=== PATIENT | female | born 1960 | race Caucasian/White ===

== ENCOUNTER → 2016-08-31 | Outpatient (REF) | payer MEDICAID ==
[2016-08-31 19:24] LABS: PERCENT SATURATION 36.9 % (13.2-37.4)
== END ==
LOC: M LAB REF 11:46
PROVIDERS: ATTEND Nurse Practitioner Adult Health
DX: Z01.89 Encounter for other specified special examinations (principal); R94.5 Abnormal results of liver function studies

== ENCOUNTER → 2016-09-28 | Outpatient (REF) | payer MEDICAID ==
[2016-09-28 18:34] LABS: ALBUMIN 4.2 GM/DL (3.2-5.2); ALBUMIN/GLOBULIN RATIO 1.24 (1.00-1.93); ALKALINE PHOSPHATASE 94 U/L (45-117); ALT/SGPT 23 U/L (12-78); ANION GAP 12 MEQ/L (8-16); AST/SGOT 21 U/L (15-37); BILIRUBIN,TOTAL 0.5 MG/DL (0.2-1.0); BLOOD UREA NITROGEN 6 MG/DL (7-18); CALCIUM LEVEL 9.7 MG/DL (8.5-10.1); CARBON DIOXIDE LEVEL 22 MEQ/L (21-32); CHLORIDE LEVEL 95 MEQ/L (98-107); CREATININE FOR GFR 0.58 MG/DL (0.55-1.02); GLOMERULAR FILTRATION RATE > 60.0 (>51); GLUCOSE, FASTING 92 MG/DL (70-105); POTASSIUM SERUM 4.5 MEQ/L (3.5-5.1); SODIUM LEVEL 129 MEQ/L (136-145); TOTAL PROTEIN 7.6 GM/DL (6.4-8.2)
== END ==
LOC: M LAB REF 16:30
PROVIDERS: ATTEND Nurse Practitioner Adult Health
DX: E55.9 Vitamin D deficiency, unspecified (principal); I10 Essential (primary) hypertension; R94.5 Abnormal results of liver function studies

== ENCOUNTER → 2018-10-30 | Outpatient (REF) | payer MEDICAID ==
[2018-10-30 12:16] LABS: BASO # 0.1 10^3/uL (0.0-0.2); BASO % 0.9 % (0.0-1.0); EOS # 0.1 10^3/uL (0.0-0.50); EOS % 1.3 % (0.0-3.0); HEMATOCRIT 44.8 % (36.0-47.0); HEMOGLOBIN 15.6 g/dl (12.0-15.5); LYMPH # 2.4 10^3/uL (1.5-4.5); LYMPH % 27.2 % (24.0-44.0); MEAN CORPUSCULAR HGB CONC 34.8 g/dl (32.0-36.5); MEAN CORPUSCULAR VOLUME 103.5 fl (80.0-96.0); MONO # 0.7 10^3/uL (0.0-0.8); MONO % 7.5 % (0.0-5.0); NEUTROPHILS # 5.5 10^3/uL (1.8-7.7); NEUTROPHILS % 62.8 % (36.0-66.0); PLATELET COUNT, AUTOMATED 237 10^3/uL (150-450); RED BLOOD COUNT 4.33 10^6/uL (4.00-5.40); WHITE BLOOD COUNT 8.7 10^3/uL (4.0-10.0)
[2018-10-30 12:22] LABS: ALBUMIN 4.1 GM/DL (3.2-5.2); ALT/SGPT 17 U/L (12-78); BILIRUBIN,TOTAL 0.5 MG/DL (0.2-1.0); BLOOD UREA NITROGEN 5 MG/DL (7-18); CALCIUM LEVEL 8.9 MG/DL (8.5-10.1); CARBON DIOXIDE LEVEL 25 MEQ/L (21-32); CHLORIDE LEVEL 101 MEQ/L (98-107); CHOLESTEROL LEVEL 242 MG/DL (<200); CHOLESTEROL RISK RATIO 4.033 (<5); CREATININE FOR GFR 0.67 MG/DL (0.55-1.30); GLOMERULAR FILTRATION RATE > 60.0 (>51); GLUCOSE, FASTING 95 MG/DL (70-100); HDL CHOLESTEROL 60 MG/DL (>40); LDL CHOLESTEROL 162 MG/DL (<100); NON-HDL-C 182 MG/DL; SODIUM LEVEL 135 MEQ/L (136-145); TOTAL PROTEIN 7.3 GM/DL (6.4-8.2); TRIGLYCERIDES LEVEL 100 MG/DL (<150)
== END ==
LOC: M LAB REF 11:56
PROVIDERS: ATTEND Nurse Practitioner Adult Health
DX: J44.9 Chronic obstructive pulmonary disease, unspecified (principal); I10 Essential (primary) hypertension; R63.4 Abnormal weight loss; D75.89 Other specified diseases of blood and blood-forming organs; R94.5 Abnormal results of liver function studies

== ENCOUNTER 2020-06-17 15:47 | Emergency (ER) | payer MEDICAID ==
[~2020-06-17] VITALS: Ht 157.5 cm; Wt 42.7 kg
[2020-06-17] MEDS ORDERED: LISI40TA PO (16:23)
[2020-06-17] MEDS ORDERED: SPIR1CAP PO (16:23)
[2020-06-17] MEDS ORDERED: BISO10TA14 PO (16:23)
[2020-06-17] MEDS ORDERED: COMBAER6 PO (16:23)
[2020-06-17] MEDS ORDERED: ALBU8.5H PO (16:23)
[2020-06-17] MEDS ORDERED: DOK1CAP7 PO (16:23)
[2020-06-17] MEDS ORDERED: VITA50005 PO (16:23)
[2020-06-17 17:24] LABS: INR 0.81; PROTHROMBIN TIME 11.4 SECONDS (12.5-14.3)
[2020-06-17 17:25] LABS: PARTIAL THROMBOPLASTIN TIME 36.7 SECONDS (24.2-38.5)
[2020-06-17 17:33] LABS: BASO # 0.1 10^3/uL (0.0-0.2); BASO % 0.3 % (0.0-1.0); EOS % 0.2 % (0.0-3.0); HEMATOCRIT 35.9 % (36.0-47.0); HEMOGLOBIN 13.6 g/dl (12.0-15.5); LYMPH # 1.5 10^3/uL (1.5-5.0); LYMPH % 8.1 % (24.0-44.0); MEAN CORPUSCULAR HEMOGLOBIN 33.5 pg (27.0-33.0); MEAN CORPUSCULAR VOLUME 88.4 fl (80.0-96.0); MONO # 0.8 10^3/uL (0.0-0.8); MONO % 4.1 % (0.0-5.0); NEUTROPHILS # 15.6 10^3/uL (1.5-8.5); NEUTROPHILS % 85.5 % (36.0-66.0); PLATELET COUNT, AUTOMATED 272 10^3/uL (150-450); RED BLOOD COUNT 4.06 10^6/uL (4.00-5.40); WHITE BLOOD COUNT 18.2 10^3/uL (4.0-10.0)
[2020-06-17 17:34] LABS: MEAN CORPUSCULAR HGB CONC 37.9 g/dl (32.0-36.5)
--- NOTE | 2020-06-17 17:41 | REP ---
INDICATION: chronic wound r/o osteo, sq emphysema COMPARISON: None. TECHNIQUE: There are four views: FINDINGS: There is diffuse circumferential forefoot soft tissue swelling. No air or gas bubbles are identified within the swollen soft tissues. There are no lytic, blastic or destructive skeletal changes to suggest osteomyelitis. Mineralization and joint spaces are otherwise unremarkable. IMPRESSION: No plain film evidence of osteomyelitis. Diffuse forefoot soft tissue swelling. <Electronically signed by Anand Braswell > 06/17/20 [id number]
[2020-06-17 17:51] LABS: ERYTHROCYTE SEDIMENTATION RATE 17 mm/hr (0-30)
[2020-06-17 18:26] LABS: BLOOD UREA NITROGEN 8 MG/DL (7-18); C REACTIVE PROTEIN QUANTITATIV 3.64 MG/DL (0.00-0.30); CALCIUM LEVEL 8.5 MG/DL (8.8-10.2); CARBON DIOXIDE LEVEL 20 MEQ/L (21-32); CHLORIDE LEVEL 81 MEQ/L (98-107); CREATININE FOR GFR 0.84 MG/DL (0.55-1.30); GLOMERULAR FILTRATION RATE > 60.0 (>45); GLUCOSE, FASTING 94 MG/DL (70-100); POTASSIUM SERUM 5.4 MEQ/L (3.5-5.1); SODIUM LEVEL 109 MEQ/L (136-145)
[2020-06-17] MEDS ORDERED: VANCOMYCIN HCL 750 MG, VIAL MATE ADAPTER 1 EACH in D5W 250 ML IV ONE (18:30)
[2020-06-17 19:01] LABS: FREE T4 1.17 NG/DL (0.76-1.46)
[2020-06-17 19:09] LABS: OSMOLALITY SERUM 224 MOSM/KG (275-295)
[2020-06-17] MEDS ORDERED: ISOVUE-370 76% 100ML VIAL As Ordered ONE (19:12)
--- NOTE | 2020-06-17 20:17 | REP ---
INDICATION: hyponatremia, copd r/o pulmonary mass. COMPARISON: 11/30/2005. TECHNIQUE: Upright PA and lateral chest. FINDINGS: The lung mercedes are clear. Cardiac size is normal. The asher, mediastinum and skeletal structures are unremarkable. IMPRESSION: Essentially negative PA and lateral chest <Electronically signed by Anand Braswell > 06/17/202013
[2020-06-17] MEDS ORDERED: NS 1,000 ML IV SCH (20:30)
[2020-06-17 20:52] LABS: ALT/SGPT 24 U/L (12-78); BILIRUBIN,DIRECT 0.2 MG/DL (0.0-0.2); BILIRUBIN,TOTAL 0.7 MG/DL (0.2-1.0); NT-PRO BNP 424 PG/ML (<125); TOTAL PROTEIN 6.4 GM/DL (6.4-8.2)
[2020-06-17] MEDS ORDERED: NS 500 ML IV ONE (21:30)
[2020-06-17 22:06] LABS: CREATININE,RANDOM URINE 22.2 MG/DL
[2020-06-17 23:14] LABS: BLOOD UREA NITROGEN 8 MG/DL (7-18); CALCIUM LEVEL 8.4 MG/DL (8.8-10.2); CARBON DIOXIDE LEVEL 22 MEQ/L (21-32); CHLORIDE LEVEL 84 MEQ/L (98-107); CREATININE FOR GFR 0.86 MG/DL (0.55-1.30); GLOMERULAR FILTRATION RATE > 60.0 (>45); GLUCOSE, FASTING 101 MG/DL (70-100); POTASSIUM SERUM 4.5 MEQ/L (3.5-5.1); SODIUM LEVEL 113 MEQ/L (136-145)
[2020-06-18 00:44] VITALS: BP 120/77
--- NOTE | 2020-06-18 07:56 | ECGEPIP ---
[facility] - ED Test Date: 2020-06-17 Pat Name: JUAN HIGGINBOTHAM Department: Room: - Gender: Female Button Tufter: madeline : 1960 Requested By: MARCIA JETT PA-C. Order Number: [id number] Reading MD: Walter Serrato Measurements Intervals [place] Rate: 89 P: 76 NH: 175 QRS: 53 QRSD: 85 T: 71 QT: 370 QTc: 451 Interpretive Statements SINUS RHYTHM LOW QRS VOLTAGE IN PRECORDIAL LEADS ANTEROSEPTAL MYOCARDIAL INFARCTION, OF INDETERMINATE AGE ABNORMAL T, CONSIDER ISCHEMIA, ANTERIOR LEADS NO PRIORS FOR COMPARISON Electronically Signed on 06-18-2020 7:55:53 EST by Walter Serrato
--- NOTE | 2020-06-18 08:51 | REP ---
INDICATION: right foot ischemia. Repeat dictation: Preliminary report is provided at the time of the exam by richie STALLWORTH. COMPARISON: None. TECHNIQUE: 100 mL of intravenous Isovue 370 is administered. Helical scanning is acquired. 3 mm axial images re-formatted. Coronal and sagittal MPR, curved MPR, and MIP images are generated. Surface rendered 3D images are generated and viewed in a rotational format. FINDINGS: The renal artery origins are not included in the scan plane. The lower pole the right kidney suggests right renal atrophy. There appear to be 2 left renal arteries. Similarly, the celiac axis and the origin of the SMA are above the top of the imaging field of view. The SMA is patent. SLICK origin is calcific but patent. The infrarenal abdominal aorta is normal in caliber with calcific plaquing no high-grade stenosis. There is bilateral common iliac artery disease with 50% stenosis of the origin of the left common iliac artery. There is multifocal right external iliac artery stenosis with the distal external iliac artery approximately 75% stenotic. There is multifocal disease involving the left external iliac artery with 80-90% stenosis. The internal iliac arteries appear to be occluded bilaterally. Distal external iliac arteries are small. Common femoral arteries show heavy calcification and plaquing with stenosis. Profundal femoral arteries are patent bilaterally. On the right there is multifocal calcific plaquing in the superficial femoral artery with multiple stenoses. A short segment occlusion is seen in the right distal SFA to popliteal artery. The right distal popliteal artery is reconstituted. There is intact peroneal artery on the right. Multifocal calcification and occlusion seen in the anterior and posterior tibial arteries on the right. There is diffuse soft tissue swelling. The 8 posterior tibial artery is reconstituted and is seen a patent across the ankle. Flow is not observed in the anterior tibial. On the left, there is extensive calcification and high-grade stenosis at the origin of the superficial femoral artery and multifocal plaquing and stenoses are seen. No SFA occlusion is identified. The popliteal artery is occluded over a short segment and the trifurcation vessels are reconstituted. There appears to be flow in 3 vessels in the proximal calf with multifocal calcification. The distal calf shows only the anterior tibial. The posterior tibial is not seen across the ankle. 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 Extensive calcific plaquing. Calf trifurcation and calf runoff disease as above. Diffuse soft tissue swelling right calf. <Electronically signed by Arun Donnelly > 06/18/20 [id number]
--- NOTE | 2020-06-19 10:19 | IPN ---
PODIATRY PROGRESS NOTE DATE: 03/18/2020 at approximately 6:30 p.m. CHIEF COMPLAINT: Patient seen today for evaluation at the Emergency Room for an ischemic right foot. HISTORY OF PRESENT ILLNESS: Patient states that her foot gives her pain only when she ambulates. It has been painful for approximately a month. She went to her primary care physician who referred her to the Emergency Room for further evaluation and she was seen today for evaluation of an ischemic right foot. PAST MEDICAL HISTORY: Positive for: 1. Dementia. 2. Alcohol abuse. PHYSICAL EXAMINATION: The patient is alert and oriented times 3. She states that her right foot is painful only with ambulation. She has noticed that she has had some discharge from a wound on the top of her right foot. Evaluation of her foot reveals an area of superficial ulcerations/sloughing of the dorsal skin of the right foot. This encompasses the entire forefoot; the fifth toe has considerable ischemic changes. The other digits are pale, but no ulceration. The plantar aspect of the foot is intact. Palpation of the dorsal aspect of the foot reveals pitting edema. The skin is not tense. It is not painful to palpation. The dorsalis pedis and posterior tibial pulses are not palpable on the right side. Popliteal pulse is not palpable as well. The left foot has a normal temperature and is not swollen. The right foot has normal temperature down to the ankle; from the ankle distally the foot is cool. CT angiogram was ordered for the right foot to evaluate her vascular status. The impression is extensive atherosclerosis with aortoiliac disease bilateral, occlusion of the right distal superficial femoral artery and popliteal artery. ASSESSMENT: Ischemic changes right foot. PLAN: Since the patient's foot has no abscess, it does not appear to have compartment syndrome, but ischemic right changes I would recommend referral to a facility that presently has vascular capability, our vascular surgeon will be back next week. Patient's questions were answered. Thank you for this consultation.
== END 2020-06-18 01:10 | disposition short-term general hospital (02) ==
LOC: M ED 15:47
DX: I70.235 Atherosclerosis of native arteries of right leg with ulceration of other part of foot (principal); E87.1 Hypo-osmolality and hyponatremia; J44.9 Chronic obstructive pulmonary disease, unspecified; I10 Essential (primary) hypertension; F17.200 Nicotine dependence, unspecified, uncomplicated; Z79.899 Other long term (current) drug therapy
CPT/HCPCS: 71046; 73630; 73706; 80048; 80076; 82570; 83605; 83880; 83930; 83935; 84300; 84439; 84443; 85025; 85610; 85652; 85730; 86140; 93005; 96361; 96365; 99284; J3370; Q9967; U0002

== ENCOUNTER → 2021-04-02 | Outpatient (RCR) | payer MEDICAID, OTHER ==
[~2021-04-02] MED LIST: ALBU8.5H PO; BISO10TA14 PO; COMBAER6 PO; DOK1CAP4 PO; ERGO500029 PO; LISI40TA4 PO; SPIR1CAP PO
== END ==
LOC: M PT 10:30
PROVIDERS: ATTEND Nurse Practitioner Adult Health
DX: Z89.611 Acquired absence of right leg above knee (principal)